=== PATIENT | female | born 1990 | race Caucasian/White ===

== ENCOUNTER 2024-08-15 12:03 | Emergency (ER) | payer MEDICAID, SELFPAY ==
[2024-08-15 12:05] VITALS: BMI 29.5
[2024-08-15 12:12] VITALS: BP 111/74; PULSE 89; RESP 16; TEMP 36.8; O2SAT 99
--- NOTE | 2024-08-15 12:20 | XR_ITS ---
EXAMINATION: Ankle, right 3 views . Technique: Ankle AP, oblique, lateral 3 views Date and time of exam: August 15, 2024 1315 hours INDICATIONS: Patient fell today with injury to the ankle, ankle pain. FINDINGS: Tiny old bone densities at the fibular tip No acute fracture No ankle dislocation IMPRESSION: No acute fracture
--- NOTE | 2024-08-15 12:20 | XR_ITS ---
Examination: Foot, right, 3 views Technique: AP, oblique, lateral views foot, 3 views Date and time of exam: August 15, 2024 at 1315 hours INDICATIONS: Patient fell today with injury to foot, foot pain FINDINGS: No acute fracture No dislocation No foreign body IMPRESSION: No acute fracture
--- NOTE | 2024-08-15 12:23 | EDNOTE_ITS ---
Lower Extremity Injury RME/HPI General Chief Complaint: Fall Stated Complaint: KNOCKED OVER BY DOG; FELL ON R) ANKLE, HEARD CRACK Time Seen by Provider: 08/15/24 12:13 Source: patient Arrival date/time: 08/15/24 12:03 33-year-old female with no known medical history presents to the emergency room with a chief complaint of pain and tenderness to the right ankle and foot after being tripped by her dog. Mode of arrival: ambulatory Limitations: no limitations Related Data Allergies Allergy/AdvReac Type Severity Reaction Status Date / Time acetaminophen (From [place]) Allergy Intermediate ITCHY Verified 08/15/24 12:07 hydrocodone (From [place]) Allergy Intermediate ITCHY Verified 08/15/24 12:07 Review of Systems Review of Systems Systems Reviewed: All systems reviewed, normal except as documented Constitutional Constitutional: Reports system reviewed and no additional complaints, except as documented, Denies fatigue, Denies fever(s), Denies headache(s) and Denies weakness Eyes Eyes: Reports system reviewed and no additional complaints, except as documented, Denies blurry vision and Denies change in vision ENT Ears, Nose, Mouth, and Throat: Reports system reviewed and no additional complaints, except as documented, Denies otalgia, Denies headache(s), Denies nasal congestion, Denies throat swelling and Denies vertigo Cardiovascular Cardiovascular: Reports system reviewed and no additional complaints, except as documented, Denies chest pain, Denies dyspnea and Denies dyspnea on exertion Respiratory Respiratory: Reports system reviewed and no additional complaints, except as documented, Denies chest congestion, Denies cough, Denies dyspnea, Denies dyspnea on exertion and Denies wheezing Gastrointestinal Gastrointestinal: Reports system reviewed and no additional complaints, except as documented, Denies abdominal pain, Denies cramping, Denies nausea and Denies vomiting Genitourinary Genitourinary: Reports system reviewed and no additional complaints, except as documented Musculoskeletal Musculoskeletal: Reports system reviewed and no additional complaints, except as documented, Reports abnormal gait, Reports arthralgias, Denies back pain, Reports joint swelling and Reports limited range of motion Integumentary/Breasts Skin/Breast: Reports system reviewed and no additional complaints, except as documented and Denies wounds Neurologic Neurologic: Reports system reviewed and no additional complaints, except as documented, Reports abnormal gait, Denies confusion, Denies headache(s), Denies lack of coordination, Denies vertigo and Denies weakness Psychiatric Psychiatric: Reports system reviewed and no additional complaints, except as documented, Denies anxiety, Denies confusion, Denies depression, Denies paranoia, Denies suicidal ideation and Denies tactile hallucinations Endocrine Endocrine: Reports system reviewed and no additional complaints, except as documented and Denies fatigue Hematologic/Lymphatic Hematologic/Lymphatic: Reports system reviewed and no additional complaints, except as documented and Denies lymphadenopathy Allergic/Immunologic Allergic/Immunologic: Reports system reviewed and no additional complaints, except as documented, Denies throat swelling, Denies urticaria and Denies wheezing Past Medical History Past Medical History CARDIAC: Negative Cardiac Disorders or Congestive Heart Failure RESPIRATORY: Negative Chronic Obstructive Pulmonary Disease (COPD) or Asthma GENITOURINARY: Negative Renal Disease MUSCULOSKELETAL: Positive Scoliosis ENDOCRINE: Negative Diabetes Mellitus Type 1 or Diabetes Mellitus Type 2 HEMATOLOGIC: Positive Anemia; Negative Sickle Cell Disease Social History SMOKING STATUS: Never smoker ED Exam General Limitations: Present no limitations General appearance: Present alert and in no apparent distress Head Head exam: Present atraumatic Eye Eye exam: Present normal appearance, PERRL and EOMI ENT ENT exam: Present normal exam, normal oropharynx and mucous membranes moist Neck Neck exam: Present normal inspection, full ROM and trachea midline Chest Chest inspection: Present normal inspection and symmetric chest wall rise Respiratory Respiratory exam: Present normal lung sounds bilaterally Cardiovascular Cardiovascular exam: Present regular rate, normal rhythm and normal heart sounds Abdominal Exam Abdominal exam: Present soft and normal bowel sounds Extremities Exam Extremities exam: Present normal inspection and full ROM Expanded Lower Extremity Exam Hip/Pelvis exam: Present normal inspection Upper leg exam: Present normal inspection Knee exam: Present normal inspection Lower leg exam: Present normal inspection Ankle exam: Present tenderness and swelling; Absent full ROM Foot/toe exam: Present tenderness and swelling; Absent full ROM Gait: observed and limited by pain and unable to bear weight Back Exam Back exam: Present normal inspection and full ROM Neurological Exam Neurological exam: Present alert, oriented X3 and CN II-XII intact Psychiatric Psychiatric exam: Present normal affect and normal mood Skin Skin exam: Present warm, dry, intact and normal color Course Quality Measures none Orders Category Date Time Status Crutches .NOW Care 08/15/24 13:53 Completed duc wrap [Splint / Immobilizer] STAT Care 08/15/24 13:53 Completed XR ankle comp RT min 3V Stat Exams 08/15/24 12:20 Completed XR foot comp RT min 3V Stat Exams 08/15/24 12:20 Completed Vital Signs Vital signs: Vital Signs Temperature 98.3 F 08/15/24 12:12 Pulse Rate 89 08/15/24 12:12 Respiratory Rate 16 08/15/24 12:12 Blood Pressure 111/74 08/15/24 12:12 Pulse Oximetry (%) 99 08/15/24 12:12 Oxygen Delivery Method Room Air 08/15/24 12:12 O2 saturation 99% within normal limits Extremity Injury, Lower MDM Narrative MDM Narrative:: 33-year-old female with no known medical history presents to the emergency room with a chief complaint of pain and tenderness to the right ankle and foot after being tripped by her dog. Patient is hemodynamically stable and in no apparent distress Physical examination shows pain and tenderness as well as mild swelling to the patient's right ankle. The patient is having pain and tenderness when walking X-ray of the right ankle and the right foot were completed and were negative for any acute fracture or dislocation. An Duc wrap was placed and the patient was offered crutches Patient was discharged and educated to follow-up with primary care provider in the next 24 to 48 hours and return to the emergency room for any evidence of worsening signs or symptoms Patient data External records reviewed:: [facility] previous records Clinical information provided by:: patient Social determinants that could affect healthcare access:: none Patient has the following chronic illnesses:: No chronic illness How is presenting disease/condition affected by chronic disease/condition?: no chronic disease Evaluation data The following diagnostics were reviewed and interpreted by me:: lab results and radiology exam(s) Lab and/or radiology exams considered but not ordered:: Labs and radiology exams considered and ordered Interpretation Summary: X-ray foot-FINDINGS: No acute fracture No dislocation No foreign body IMPRESSION: No acute fracture X-ray ankle-FINDINGS: Tiny old bone densities at the fibular tip No acute fracture No ankle dislocation IMPRESSION: No acute fracture Medications / Prescriptions Medications or Prescriptions considered but not ordered:: No medication given Medication administrations:: No medication given Consultations Consultation(s) initiated? (list below): No Diagnosis Extremity Injury, Lower Differential Diagnosis: ankle sprain and strain, ankle fracture and other (Foot sprain/foot fracture) Most likely diagnosis given after review of the tests above:: Ankle sprain strain Admission Indicated Admission indicated?: not indicated Admission Request Was there a request for admission?: No Disposition Plan Disposition Plan: Discharge Discharge Attestation Discharge Attestation: The patient and all family members were given an opportunity to ask questions and understood the discharge instructions. Discharge instructions specifically effects, indications for sooner follow up or return to the emergency department, and the expected course of current diagnosis. Patient condition: Stable Discharge Plan Plan Patient Disposition: HOME (Self Care) Disposition Comment: Stable Prescriptions/Referrals Referrals: Sherie Montero PA-C [Primary Care Provider] - In 1 week Problem List Clinical Impression: Ankle sprain and strain Patient/Caregiver Discharge Instructions Additional Instructions: Please follow-up with your primary care provider in the next 24 to 48 hours. Your x-rays were negative for any acute fracture or dislocation For any evidence of worsening signs or symptoms return to emergency room immediately Print Language: Croatian Stand Alone Forms: Radha Award Info., Work/School Release, Patient Portal Info Letter SALLY/BETY Supervising Physician ABHILASH Supervising Physician: Dr Garcia
== END 2024-08-15 14:45 | disposition home or self-care (01) ==
PROVIDERS: Emergency Provider Emergency Medicine; PCP Physician Assistant
DX: S93.401A Sprain of unspecified ligament of right ankle, initial encounter (principal); S96.911A Strain of unspecified muscle and tendon at ankle and foot level, right foot, initial encounter; W54.1XXA Struck by dog, initial encounter
CPT/HCPCS: 73610; 73630; 99283

== ENCOUNTER 2024-10-05 06:10 | Emergency (ER) | payer MEDICAID, SELFPAY ==
[2024-10-05 06:11] VITALS: BMI 32.5
[2024-10-05 06:15] VITALS: BP 112/66; PULSE 97; RESP 20; O2SAT 97
[2024-10-05 06:18] VITALS: TEMP 36.8
[2024-10-05 06:24] VITALS: TEMP 37.2
--- NOTE | 2024-10-05 06:30 | EDRME_ITS ---
Rapid Medical Screening Exam [facility] Arrival date/time: 10/05/24 06:10 34-year-old female presents to the emergency department for complaints of abdominal pain diarrhea and blood in her stool. Chief Complaint: Abdominal Pain Time Seen by Provider: 10/05/24 06:19 Vital signs: Vital Signs Pulse Rate 97 10/05/24 06:15 Respiratory Rate 20 10/05/24 06:15 Blood Pressure 112/66 10/05/24 06:15 Pulse Oximetry (%) 97 10/05/24 06:15 Oxygen Delivery Method Room Air 10/05/24 06:15
[2024-10-05 07:06] LABS: Basophils % (Auto) 0 % (0-2.5); Eosinophils % (Auto) 0 % (0-10); Immature Granulocytes % (Auto) 0 % (0-0); Immature Granulocytes Auto 0.04 Thou/mm3 (0.00-0.00); Lymphocytes # (Auto) 0.5 Thou/mm3 (1.0-4.8); Lymphocytes % (Auto) 4 % (10-50); Mean Corpuscular Hemoglobin 21.8 pg (25.0-35.0); Mean Corpuscular Volume 73 fL (80-100); Monocytes # (Auto) 0.6 Thou/mm3 (0.0-0.8); Monocytes % (Auto) 4 % (0-12); Neutrophils # (Auto) 11.8 Thou/mm3 (1.8-7.7); Neutrophils % (Auto) 91 % (37-80); Nucleated Red Blood Cell % 0 /100 WBC (0); Platelet Count 316 Thou/mm3 (140-440); RDW Standard Deviation 42.1 fL (36.4-46.3); Red Blood Count 4.12 Miln/mm3 (4.00-5.20); White Blood Count 12.9 Thou/mm3 (3.6-11.0)
[2024-10-05 07:22] LABS: Alanine Aminotransferase 30 U/L (10-49); Albumin, Serum 4.4 gm/dL (3.5-5.0); Albumin/Globulin Ratio 1.5 (1.2-2.2); Alkaline Phosphatase 100 U/L (46-116); Anion Gap 10 (7-16); Aspartate Amino Transferase 30 U/L (0-34); BUN/Creatinine Ratio 11 Ratio (12-20); Bilirubin,Total 0.5 mg/dL (0.3-1.2); Blood Urea Nitrogen 8 mg/dL (9-23); Calcium 8.5 mg/dL (8.3-10.6); Calcium (Corrected) 8.5 mg/dL (8.5-10.1); Carbon Dioxide 26.3 mMol/L (20.0-31.0); Chloride 103 mMol/L (98-107); Creatinine (Component) 0.7 mg/dL (0.6-1.3); Globulin 2.9 gm/dL (2.3-3.5); Glucose 140 mg/dL (74-106); Lipase 30 U/L (12-53); Osmolality,Calculated 277 (275-295); Potassium 3.1 mMol/L (3.4-5.1); Sodium 139 mMol/L (136-145); Total Protein 7.3 gm/dL (5.7-8.2); eGFR > 60 See Note
[2024-10-05 10:05] VITALS: BP 123/73; PULSE 93; RESP 14; TEMP 37; O2SAT 100; BMI 35.0
[2024-10-05 10:25] LABS: Stool for WBCs Negative (Negative)
--- NOTE | 2024-10-05 11:28 | EDNOTE_ITS ---
<Statement entered by Kaylan Card MD - 10/16/24 06:17> As co-signing physician, I was present and available for consult prn. I concur with the plan and care as documented by the midlevel provider. Nausea/Vomit./Diarrhea-RME/HPI General Chief complaint: Abdominal Pain Stated complaint: ABD PAIN, DIARRHEA WITH BLOOD, FEVER Time Seen by Provider: 10/05/24 06:19 Arrival date/time: 10/05/24 06:10 RME / HPI RME / HPI Narrative: 34-year-old female presents to the emergency department for complaints of abdominal pain diarrhea and blood in her stool. This been ongoing for the last 4 days, patient told me that she is also vomiting. She cannot take anything down. Last time she drink was yesterday. She tried drinking this morning it just vomited. 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 Her abdominal pain is described as dull ache, severity moderate. Denies any fever. Related Data Previous Rx's ?Medication ?Instructions ?Recorded ciprofloxacin HCl 500 mg tablet 500 mg PO BID #10 tabs 10/05/24 (Cipro) ondansetron HCl 4 mg tablet 4 mg PO Q8H PRN nausea and 10/05/24 vomiting 5 days #20 tabs Allergies Allergy/AdvReac Type Severity Reaction Status Date / Time acetaminophen (From [place]) Allergy Intermediate ITCHY Verified 10/05/24 06:11 hydrocodone (From [place]) Allergy Intermediate ITCHY Verified 10/05/24 06:11 hydrocortisone Allergy Rash Verified 10/05/24 06:11 Review of Systems Review of Systems Narrative Review of Systems: Review of system reviewed and within normal limits except mentioned in HPI ED Exam Narrative Physical exam: VITAL SIGNS: Reviewed. GENERAL APPEARANCE: Alert and interactive, follows commands, no acute distress, HEAD AND FACE: Non-traumatic. ENT: PERRL, pink conjunctivitis, eyelid no trauma, Mucous membrane dry NECK: Supple, nontender, no nuchal rigidity. CHEST: No tenderness, no crepitus, no paradoxical movement, no retractions. LUNGS: Clear, well ventilated, symmetric, no rales, no wheezing, no ronchi, no stridor, good breath sounds bilaterally. HEART: Regular rate, regular rhythm, no murmur, no gallops. ABDOMEN: Soft, positive bowel sounds, nondistended, no guarding, diffuse abdominal tenderness no rebound, no masses, RECTAL: Deferred. GENITAL: Deferred. NEUROLOGICAL: Gross motor function intact sensory function intact, Appropriate for age. MUSCULOSKELETAL: low back nontender, full range of motion. EXTREMITIES: Nontender, full range of motion. SKIN: Color pink, dry, no rash, no lacerations, no abrasions, no contusions. LYMPHATICS: Deferred. Course Quality Measures none Orders Category Date Time Status CT Screening NOW Care 10/05/24 11:[address] abdomen pelvis w con Stat Exams 10/05/24 11:34 Completed CBC Stat Lab 10/05/24 06:41 Completed Comprehensive Metabolic Panel Stat Lab 10/05/24 06:41 Completed HCG Qualitative,Urine Stat Lab 10/05/24 12:06 Completed Lipase Stat Lab 10/05/24 06:41 Completed Stool Culture Stat Lab 10/05/24 08:03 Received Stool for WBCs Stat Lab 10/05/24 08:03 Completed UA, C/S IF [Urinalysis, C/S if Indicated] Stat Lab 10/05/24 12:06 Completed Urine Culture Stat Lab 10/05/24 12:06 Received c diff [Clostridium Difficile PCR] Stat Lab 10/05/24 08:03 Completed Famotidine Inj [Pepcid Inj] Med 10/05/24 11:33 Discontinued 20 mg IVP X1 ONE Ondansetron Inj [Zofran Inj] Med 10/05/24 11:33 Discontinued 4 mg IV X1 ONE POTASSIUM CHL 10 mEq IVPB [Kcl Ivpb] Med 10/05/24 11:33 Discontinued 10 meq in 100 ml IV X1 Potassium Chloride [K-Dur] Med 10/05/24 16:09 Discontinued 40 meq PO X1 ONE Ringers Lactated 1000 ml [Lactated Ringers] 1,000 ml Med 10/05/24 11:33 Discontinued IV 999 mls/hr Ringers Lactated 1000 ml [Lactated Ringers] 1,000 ml Med 10/05/24 11:34 Discontinued IV 999 mls/hr Vital Signs Vital signs: Vital Signs Pulse Rate 97 10/05/24 06:15 Respiratory Rate 20 10/05/24 06:15 Blood Pressure 112/66 10/05/24 06:15 Pulse Oximetry (%) 97 10/05/24 06:15 Oxygen Delivery Method Room Air 10/05/24 06:15 Nausea/Vomiting/Diarrhea [facility] Narrative [facility] Narrative:: 34-year-old female presents to the emergency department for complaints of abdominal pain diarrhea and blood in her stool. This been ongoing for the last 4 days, patient told me that she is also vomiting. She cannot take anything down. Last time she drink was yesterday. She tried drinking this morning it just vomited. 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 Her abdominal pain is described as dull ache, severity moderate. Denies any fever. Patient's sister negative for C. difficile and negative for WBC count. CBC was noted to be slightly having leukocytosis of 12.9. Potassium 3.1 BUN of 8. Ur inalysis no UTI. CT scan of the abdomen pelvis showed Mild diffuse nonspecific colitis pattern Recommend pelvic sonography to confirm 14 mm involuting right adnexal cyst with free fluid in the pelvis Cystitis pattern Patient received potassium replacement 2 L of IV LR. Patient was also given Zofran. Patient is tolerating p.o. fluids. Patient data External records reviewed:: None Clinical information provided by:: patient Social determinants that could affect healthcare access:: none Patient has the following chronic illnesses:: None How is presenting disease/condition affected by chronic disease/condition?: no chronic disease Evaluation data The following diagnostics were reviewed and interpreted by me:: lab results and radiology exam(s) Lab and/or radiology exams considered but not ordered:: None Interpretation Summary: See results in MDM Medications / Prescriptions Medications / Prescriptions considered but not ordered:: None Medication administrations:: Medication Administration History Discontinued Medications Famotidine (Famotidine Inj 10 Mg/Ml Vial 2 Ml) 20 mg IVP X1 ONE Stop: 10/05/24 11:34 Last Admin: 10/05/24 11:56 Dose: 20 mg Documented By: GINO Potassium Chloride (Kcl Ivpb) 10 meq in 100 mls @ 100 mls/hr IV X1 ONE Stop: 10/05/24 12:32 Last Infusion: 10/05/24 13:04 Dose: Infused Documented By: Admin: 10/05/24 11:58 Dose: 100 mls/hr Documented By: GINO Lactated Ringer's (Lactated Ringers) 1,000 mls @ 999 mls/hr IV .Q1H1M ONE Stop: 10/05/24 12:33 Last Infusion: 10/05/24 14:09 Dose: Infused Documented By: Admin: 10/05/24 11:52 Dose: 999 mls/hr Documented By: GINO Lactated Ringer's (Lactated Ringers) 1,000 mls @ 999 mls/hr IV .Q1H1M ONE Stop: 10/05/24 12:34 Last Infusion: 10/05/24 14:09 Dose: Infused Documented By: Admin: 10/05/24 11:53 Dose: 999 mls/hr Documented By: GINO Ondansetron HCl (Ondansetron Inj 2 Mg/Ml Inj 2 Ml) 4 mg IV X1 ONE; Protocol Stop: 10/05/24 11:34 Last Admin: 10/05/24 11:46 Dose: 4 mg Documented By: GINO Potassium Chloride (Potassium Chloride 20 Meq Tabcr) 40 meq PO X1 ONE Stop: 10/05/24 16:10 Potassium replacement Zofran and IV fluids and Pepcid Consultations Consultation(s) initiated? (list below): No Diagnosis Nausea Differential Diagnosis: food poisoning, gastroenteritis and dehydration Most likely diagnosis given after review of the tests above:: Colitis, gastroenteritis, dehydration Admission Indicated Admission indicated?: not indicated Admission Request Was there a request for admission?: No Disposition Plan Disposition Plan: Discharge Discharge Attestation Discharge Attestation: The patient was given an opportunity to ask questions and understood the disch arge instructions. Discharge instructions specifically effects, indications for sooner follow up or return to the emergency department, and the expected course of current diagnosis. Patient condition: Stable Discharge Plan Plan Patient Disposition: HOME (Self Care) Discharge Disposition comment: stable Prescriptions/Referrals Prescriptions/Med Rec: New ciprofloxacin HCl [Cipro] 500 mg tablet 500 mg PO BID Qty: 10 0RF ondansetron HCl 4 mg tablet 4 mg PO Q8H PRN (Reason: nausea and vomiting) 5 Days Qty: 20 0RF Referrals: No Primary/Family,Physician [Primary Care Provider] - In 1 week Problem List Clinical Impression: Gastroenteritis, Colitis, Dehydration Patient/Caregiver Discharge Instructions Discharge Activity: activity as tolerated Education Materials: Understanding Colitis Additional Instructions: Thank you for the opportunity for serving you today. You are stable for discharged . You are advised to: Follow-up with your PCP in 1 to 2 days Return to ED for worsening of symptoms Increase oral fluids Take medication as prescribed Print Language: Syriac Stand Alone Forms: Radha Award Info., Patient Portal Info Letter PA/PILE OPERATOR Supervising Physician PA/PILE OPERATOR Supervising Physician: MD Vickey
--- NOTE | 2024-10-05 11:34 | XR_ITS ---
Examination: CT abdomen with intravenous contrast CT pelvis with intravenous contrast 2-D coronal reconstructions 2-D sagittal reconstructions Date and time of exam:October 05, 2024 1403 hours Comparison September 09, 2023 INDICATIONS: Generalized abdominal pain with blood in stool beginning 3 days ago. CTDI: vol (mGy) 37 DLP: (mGycm) 1338 Technique: Multiple axial sections of the abdomen and pelvis have been obtained. 64 slice high-resolution scanner used. 3 mm axial sections have been obtained, post intravenous injection 60 cc [id number] 2-D sagittal, coronal reconstructions obtained. Low dose protocols were performed. One or more of the following dose reduction techniques were used; automated exposure control, adjustment of the mA and/or KV according to patient size, use of iterative reconstruction technique. Findings: No focal liver or splenic lesions No gallstones No pancreatic or adrenal mass No renal or ureteral calculi, no hydronephrosis 10 mm fat-containing umbilical hernia Normal appendix The entire colon shows wall thickening and hyperemia Retroverted uterus 14 mm involuting right adnexal cyst with mild free fluid in the pelvis Urinary bladder wall thickening up to 6 mm Grade 1 spondylolisthesis L5 on S1 IMPRESSION: Mild diffuse nonspecific colitis pattern Recommend pelvic sonography to confirm 14 mm involuting right adnexal cyst with free fluid in the pelvis Cystitis pattern
[2024-10-05] MEDS: ONDANSETRON INJ 2 MG/ML INJ 2 ML 4 MG IV (11:46)
[2024-10-05] MEDS: RINGERS LACTATED 1000 ML 1,000 ML 999 ML IV ×2 (11:52→11:53)
[2024-10-05] MEDS: FAMOTIDINE INJ 10 MG/ML VIAL 2 ML 20 MG IVP (11:56)
[2024-10-05] MEDS: POTASSIUM CHL 10 mEq IVPB 10 MEQ/100 ML BAG 100 MEQ IV (11:58)
[2024-10-05 12:00] VITALS: BP 114/59; PULSE 85; RESP 17; TEMP 37.1; O2SAT 96
[2024-10-05 12:19] LABS: Collection Type, Urine Clean Catch
[2024-10-05 12:51] LABS: HCG Qualitative,Urine Negative
[2024-10-05 12:54] LABS: Bilirubin,Urine Negative (Negative); Blood,Urine 3+ (Negative); Glucose, Urine Negative (Negative); Ketones,Urine Negative (Negative); Leukocyte Esterase,Urine Trace (Negative); Nitrite,Urine Positive (Negative); Protein,Urine 3+ (Neg - Trace); Specific Gravity,Urine 1.025 (1.001-1.035); Urobilinogen,Urine 0.2 mg/dL (0.0-1.0)
[2024-10-05 12:59] LABS: Clarity,Urine Bloody (Clear/Hazy); Color,Urine Red (Lt Yel-Yel); Culture Indicated,Urine Yes
[2024-10-05 13:04] LABS: Bacteria,Urine Rare; Squamous Epithelial Cell,Urine 1 /hpf (0-5); WBC,Urine 5 /hpf (0-5)
[2024-10-05 14:13] LABS: Clostridium Difficile PCR Negative (Negative)
[2024-10-05 14:40] VITALS: BP 129/57; PULSE 84; RESP 16; TEMP 37; O2SAT 99
[2024-10-05] MEDS: POTASSIUM CHLORIDE 20 mEq TABCR 40 MEQ PO (16:30)
== END 2024-10-05 16:39 | disposition home or self-care (01) ==
PROVIDERS: Nurse Practitioner Primary Care; Emergency Provider Emergency Medicine
DX: E86.0 Dehydration (principal); K52.9 Noninfective gastroenteritis and colitis, unspecified
CPT/HCPCS: 36415; 74177; 80053; 81001; 81025; 83690; 85025; 87015; 87045; 87046; 87077; 87086; 87186; 87205; 87493; 87899; 96361; 96365; 96375; 99284; A4649; J2405; J3480; J3490; J7120; Q9967; A9270

== ENCOUNTER 2024-11-18 14:16 | Emergency (ER) | payer MEDICAID, SELFPAY ==
[2024-11-18 14:16] VITALS: BMI 32.5
[2024-11-18 14:26] VITALS: BP 121/79; PULSE 99; RESP 20; TEMP 36.9; O2SAT 97; BMI 33.5
--- NOTE | 2024-11-18 14:36 | XR_ITS ---
Examination: CT abdomen and pelvis without contrast. Coronal 3-D reconstructions. Sagittal 2-D reconstructions. Date and time of exam:November 18, 2024, 1603 hours Comparison October 05, 2024 INDICATIONS: Onset of right-sided abdominal pain beginning 5 hours ago CTDI: vol (mGy): 15.4 DLP: (mGycm): 870 Technique: Axial images of the abdomen have been obtained, 3 mm slice thickness Intravenous contrast material has not been administered. Low dose protocols were performed. One or more of the following dose reduction techniques were used; automated exposure control, adjustment of the mA and/or KV according to patient size, use of iterative reconstruction technique. Findings: No focal liver or splenic lesions Contracted gallbladder No pancreatic or adrenal mass. No renal or ureteral calculi, no hydronephrosis Aorta normal size Normal appendix No bowel obstruction Negative for diverticulitis A partially retroverted uterus No adnexal mass Trace free fluid in the cul-de-sac Contracted urinary bladder Grade 1 spondylolisthesis L5 on S1-3 millimeters and lumbar disc bulge IMPRESSION: No renal or ureteral calculi, no hydronephrosis Normal appendix No bowel obstruction or diverticulitis Mild free fluid in the pelvis
--- NOTE | 2024-11-18 14:37 | PD.EDRME ---
Rapid Medical Screening Exam [facility] Arrival date/time: 11/18/24 14:16 This is a case of 34-year-old female who came into the emergency room due to left-sided abdominal pain radiating to the left flank associated with nausea vomiting and fever for 1 day worsening symptoms this patient decided to start consult here in the emergency ROOM Chief Complaint: Abdominal Pain Time Seen by Provider: 11/18/24 14:34 Vital signs: Vital Signs Temperature 98.5 F 11/18/24 14:26 Pulse Rate 99 11/18/24 14:26 Respiratory Rate 20 11/18/24 14:26 Blood Pressure 121/79 11/18/24 14:26 Pulse Oximetry (%) 97 11/18/24 14:26
[2024-11-18 14:59] LABS: Collection Type, Urine Clean Catch
[2024-11-18 15:07] LABS: Basophils # (Auto) 0.1 Thou/mm3 (0.0-0.2); Basophils % (Auto) 1 % (0-2.5); Eosinophils # (Auto) 0.1 Thou/mm3 (0.0-0.5); Eosinophils % (Auto) 1 % (0-10); Hematocrit 29.6 % (36.0-46.0); Immature Granulocytes % (Auto) 0 % (0-0); Immature Granulocytes Auto 0.02 Thou/mm3 (0.00-0.00); Lymphocytes # (Auto) 2.4 Thou/mm3 (1.0-4.8); Lymphocytes % (Auto) 24 % (10-50); Mean Corpuscular HGB Conc 30.4 g/dl (31.0-37.0); Mean Corpuscular Hemoglobin 21.5 pg (25.0-35.0); Mean Corpuscular Volume 71 fL (80-100); Monocytes # (Auto) 0.6 Thou/mm3 (0.0-0.8); Monocytes % (Auto) 6 % (0-12); Neutrophils # (Auto) 6.9 Thou/mm3 (1.8-7.7); Neutrophils % (Auto) 69 % (37-80); Nucleated Red Blood Cell % 0 /100 WBC (0); Platelet Count 352 Thou/mm3 (140-440); RDW Standard Deviation 40.9 fL (36.4-46.3); Red Blood Count 4.19 Miln/mm3 (4.00-5.20)
[2024-11-18 15:26] LABS: Alanine Aminotransferase 23 U/L (10-49); Albumin, Serum 4.5 gm/dL (3.5-5.0); Albumin/Globulin Ratio 1.6 (1.2-2.2); Alkaline Phosphatase 97 U/L (46-116); Anion Gap 6 (7-16); Aspartate Amino Transferase 23 U/L (0-34); BUN/Creatinine Ratio 13 Ratio (12-20); Bilirubin,Total 0.5 mg/dL (0.3-1.2); Blood Urea Nitrogen 9 mg/dL (9-23); Chloride 106 mMol/L (98-107); Creatinine (Component) 0.7 mg/dL (0.6-1.3); Estimated Creatinine Clearance 143.2 mL/min (>60); Globulin 2.8 gm/dL (2.3-3.5); Glucose 94 mg/dL (74-106); Lipase 42 U/L (12-53); Osmolality,Calculated 274 (275-295); Potassium 3.9 mMol/L (3.4-5.1); Sodium 138 mMol/L (136-145); Total Protein 7.3 gm/dL (5.7-8.2); eGFR > 60 See Note
[2024-11-18 15:32] LABS: Bilirubin,Urine Negative (Negative); Blood,Urine Negative (Negative); Color,Urine Yellow (Lt Yel-Yel); Glucose, Urine Negative (Negative); Ketones,Urine Negative (Negative); Leukocyte Esterase,Urine Negative (Negative); Nitrite,Urine Negative (Negative); Protein,Urine 1+ (Neg - Trace); RBC,Urine 1 /hpf (0-3); Specific Gravity,Urine 1.032 (1.001-1.035); Squamous Epithelial Cell,Urine 33 /hpf (0-5); Urobilinogen,Urine Negative mg/dL (0.0-1.0); WBC,Urine < 1 /hpf (0-5)
[2024-11-18 15:36] LABS: Clarity,Urine Hazy (Clear/Hazy)
[2024-11-18 15:45] LABS: HCG Qualitative,Urine Negative
--- NOTE | 2024-11-18 19:46 | EDNOTE_ITS ---
ED Abdominal Pain RME/HPI General Chief Complaint: Abdominal Pain Stated complaint: ABD PAIN X2HR Time seen by provider: 11/18/24 14:34 Arrival date/time: 11/18/24 14:16 RME / HPI RME / HPI narrative: 11/18/24 14:16 This is a case of 34-year-old female who came into the emergency room due to left-sided abdominal pain radiating to the left flank associated with nausea vomiting and fever for 1 day worsening symptoms this patient decided to start consult here in the emergency ROOM Dr. Paul?s Main ED Evaluation: 34yo female presents to the ED for a chief complaint of LLQ pain x this morning. Patient states the pain radiates to the left side of her back. Patient states she initially woke up this morning feeling her usual self, but started having LLQ pain ~1100. Patient reports associated nausea and fever. She did take Tylenol at home, which resolved her fever. Patient denies any V/D, constipation, abnormal vaginal discharge, UTI symptoms, hematochezia, melena or any other associated symptoms. PSH includes 2 c-sections and tubal litigation. Related Data Previous Rx's ?Medication ?Instructions ?Recorded ciprofloxacin HCl 500 mg tablet 500 mg PO BID #10 tabs 10/05/24 (Cipro) Allergies Allergy/AdvReac Type Severity Reaction Status Date / Time acetaminophen (From [place]) Allergy Intermediate ITCHY Verified 11/18/24 14:18 hydrocodone (From [place]) Allergy Intermediate ITCHY Verified 11/18/24 14:18 hydrocortisone Allergy Rash Verified 11/18/24 14:18 Review of Systems Review of Systems Systems Reviewed: All systems reviewed, normal except as documented Past Medical History Past Medical History CARDIAC: Negative Cardiac Disorders or Congestive Heart Failure RESPIRATORY: Positive Asthma; Negative Chronic Obstructive Pulmonary Disease (COPD) GENITOURINARY: Negative Renal Disease MUSCULOSKELETAL: Positive Scoliosis ENDOCRINE: Negative Diabetes Mellitus Type 1 or Diabetes Mellitus Type 2 HEMATOLOGIC: Positive Anemia; Negative Sickle Cell Disease Family History FAMILY HISTORY: Positive Family Cancer (pts mother breast cancer, pt's father skin cancer) Surgical History SURGICAL: Positive Section (x2) Social History SMOKING STATUS: Never smoker ED Exam Narrative Physical exam: GEN. APPEARANCE: The patient is alert awake oriented X-3 in no distress, sitting in the chair, appears uncomfortable. VITALS: All vitals were reviewed and the pulse ox is 97% on room air which is normal according to my interpretation. HEENT: Normocephalic, atraumatic. Pupils are equal and reactive. Oral mucosa is moist. Patent Nares NECK: Supple, nontender, no thyromegaly, no meningismus, no JVD CHEST: Symmetrical, atraumatic, and with equal expansion , Nontender on palpation no deformity and no crepitus. CARDIOVASCULAR: Heart regular rhythm no murmur or gallop rub or extra beats. LUNGS: Clear to auscultation bilaterally with symmetrical chest rise. No laboring tachypnea or wheezing. No intercostal subcostal retraction. No rales and no rhonchi. ABDOMEN: Soft, flat, LLQ tenderness to palpation, no guarding or rebound tenderness. There are no abnormal masses palpated. EXTREMITIES: Nontender. No edema. No cyanosis. Patient is able to move all 4 extremities well, with full ROM and good CSM. SKIN: Warm and dry, no jaundice or rashes noted. NEURO: Patient is WITT x 4, Cranial nerves II through XII grossly intact. There is no focal neurologic deficits noted. GCS is 15, PNS and [employer] appear grossly intact. PSYCHIATRIC: Patient is in normal mood and affect. Course Quality Measures none Orders Category Date Time Status CT abdomen pelvis wo con Stat Exams 11/18/24 14:36 Completed US pelvic complete Stat Exams 11/18/24 19:47 Completed CBC Stat Lab 11/18/24 14:40 Completed Comprehensive Metabolic Panel Stat Lab 11/18/24 14:40 Completed HCG Qualitative,Urine Stat Lab 11/18/24 14:52 Completed Lipase Stat Lab 11/18/24 14:40 Completed Urinalysis Stat Lab 11/18/24 14:52 Completed Vital Signs Vital signs: Vital Signs Temperature 98.5 F 11/18/24 14:26 Pulse Rate 99 11/18/24 14:26 Respiratory Rate 20 11/18/24 14:26 Blood Pressure 121/79 11/18/24 14:26 Pulse Oximetry (%) 97 11/18/24 14:26 Abdominal Pain MDM MDM Narrative MDM Narrative:: Scribe Attestation: 11/18/24 - Jeanine Diaz am scribing for and in the presence of Dr. Paul. Patient presents with left flank pain as well as left lower abdominal pain. Vital signs and exam as stated. Concern for urinary tract infection pyelonephritis urolithiasis ovarian torsion among others. Patient received labs, CT abdomen pelvis with contrast as well as a pelvic ultrasound. Labs without any acute hematologic or significant metabolic abnormality. Patient is not . CT scan with contrast identified trace free fluid in the pelvis otherwise no abnormalities. Pelvic ultrasound unremarkable. CT scan did identify a grade 1 L5-S1 anterolisthesis. Patient does not have any focal neurodeficits. Advised patient to follow-up on these findings with her primary care doctor. On reevaluation patient hemodynamically stable not distressed will discharge home close return precautions follow-up with her providers. Patient data External records reviewed:: [facility] previous records (Per chart review, patient was seen here on 10/05/24 for colitis.) Clinical information provided by:: patient Social determinants that could affect healthcare access:: none Patient has the following chronic illnesses:: asthma How is presenting disease/condition affected by chronic disease/condition?: uneffected by Evaluation data The following diagnostics were reviewed and interpreted by me:: lab results and radiology exam(s) Lab and/or radiology exams considered but not ordered:: none Interpretation Summary: WBC normal, Hemoglobin 9.0, Hematocrit 29.6, CMP normal, Lipase normal, UA negative for UTI, HCG negative. -------- [place] [facility] Report Signed Patient: ALCIRA SERRANO Record#: [id number] Birthdate: 1990 Age/Sex: 34 / F Location: [facility] Attending Dr: Ordering Physician: Shalonda Hein Date of Service: 11/18/24 Procedure(s): CT abdomen pelvis wo con Accession Number(s): [id number] cc: Anshu Jones MD; NO PRIMARY/FAMILY,PHYSICIAN; Shalonda Hein~ Examination: CT abdomen and pelvis without contrast. Coronal 3-D reconstructions. Sagittal 2-D reconstructions. Date and time of exam:November 18, 2024, 1603 hours Comparison October 05, 2024 INDICATIONS: Onset of right-sided abdominal pain beginning 5 hours ago CTDI: vol (mGy): 15.4 DLP: (mGycm): 870 Technique: Axial images of the abdomen have been obtained, 3 mm slice thickness Intravenous contrast material has not been administered. Low dose protocols were performed. One or more of the following dose reduction techniques were used; automated exposure control, adjustment of the mA and/or KV according to patient size, use of iterative reconstruction technique. Findings: No focal liver or splenic lesions Contracted gallbladder No pancreatic or adrenal mass. No renal or ureteral calculi, no hydronephrosis Aorta normal size Normal appendix No bowel obstruction Negative for diverticulitis A partially retroverted uterus No adnexal mass Trace free fluid in the cul-de-sac Contracted urinary bladder Grade 1 spondylolisthesis L5 on S1-3 millimeters and lumbar disc bulge IMPRESSION: No renal or ureteral calculi, no hydronephrosis Normal appendix No bowel obstruction or diverticulitis Mild free fluid in the pelvis Dictated By: Anshu Jones MD Signed By: <Electronically signed by Anshu Jones MD in [place]> 11/18/24 1990 [place] [place] [facility] Report Signed Patient: ALCIRA SERRANO. Record#: [id number] Birthdate: 1990 Age/Sex: 34 / F Location: [facility] Attending Dr: Ordering Physician: Chaya Paul MD Date of Service: 11/18/24 Procedure(s): US pelvic complete Accession Number(s): [id number] cc: Anshu Jones MD; NO PRIMARY/FAMILY,PHYSICIAN; Chaya Paul MD~ Examination: Pelvic ultrasound, transabdominal, complete Technique: Transabdominal ultrasound of the pelvis performed using grayscale imaging Exam date and time: November 18, 2024, 2037 hours INDICATIONS: Pelvic pain beginning 1:00 PM today. FINDINGS: Uterus 11.6 cm endometrial stripe 1.0 cm No uterine mass or intrauterine gestation Right ovary 3.4 cm arterial flow. Left ovary 3.7 cm arterial flow IMPRESSION: Negative examination Dictated By: Anshu Jones MD Signed By: <Electronically signed by Anshu Jones MD in OV> 11/18/24 2638 Medications / Prescriptions Medications or Prescriptions considered but not ordered:: none Medication administrations:: none Consultations Consultation(s) initiated? (list below): No Diagnosis Differential diagnosis abdominal pain: other (ovarian torsion, ovarian cyst, kidney stone, pyelonephritis) Most likely diagnosis given after review of the tests above:: see clinical impression below Admission Indicated Admission indicated?: not indicated Admission Request Was there a request for admission?: No Disposition Plan Disposition Plan: Discharge Discharge Attestation Discharge Attestation: The patient and all family members were given an opportunity to ask questions and understood the discharge instructions. Discharge instructions specifically effects, indications for sooner follow up or return to the emergency department, and the expected course of current diagnosis. Patient condition: Stable Discharge Plan Plan Patient Disposition: HOME (Self Care) Prescriptions/Referrals Prescriptions/Med Rec: No Action ciprofloxacin HCl [Cipro] 500 mg tablet 500 mg PO BID Qty: 10 0RF Referrals: No Primary/Family,Physician [Primary Care Provider] - In 1 week Problem List Clinical Impression: Pelvic pain, Acute flank pain Patient/Caregiver Discharge Instructions Education Materials: ED Pelvic Pain, Unknown Cause Additional Instructions: Your labs and ultrasound were normal. Your CT scan did not identify an acute cause for your pelvic pain and flank pain today. I did identify a grade 1 spondylolisthesis L5 on S1 with disc bulge that may be responsible for your back pain. It is important that you discuss these findings with your primary care doctor. Return immediately if you have worsening symptoms or new symptoms of concern. Print Language: [place] Stand Alone Forms: Radha Award Info., Patient Portal Info Letter
[2024-11-18 21:05] VITALS: BP 132/80; PULSE 82; RESP 16; TEMP 36.9; O2SAT 99
[2024-11-18 23:09] VITALS: BP 148/92; PULSE 70; RESP 17; TEMP 36.9; O2SAT 100
== END 2024-11-18 23:10 | disposition home or self-care (01) ==
PROVIDERS: Nurse Practitioner Family; Emergency Provider Emergency Medicine
DX: R10.2 Pelvic and perineal pain (principal); M43.17 Spondylolisthesis, lumbosacral region
CPT/HCPCS: 36415; 74176; 76856; 80053; 81001; 81025; 83690; 85025; 99284